=== PATIENT | male | born 1950 | race Caucasian/White ===

== ENCOUNTER 2017-10-02 17:56 | Emergency (ER) | payer OTHER ==
[~2017-10-02] VITALS: Ht 172.7 cm; Wt 59.0 kg
== END 2017-10-02 21:57 | disposition home or self-care (01) ==
LOC: ER 17:56
DX: K64.4 Residual hemorrhoidal skin tags (principal); K62.5 Hemorrhage of anus and rectum; R10.84 Generalized abdominal pain